=== PATIENT | male | born 1995 | race Caucasian/White ===

== ENCOUNTER 2016-11-26 13:47 | Emergency (ER) | payer BC ==
[2016-11-26] MEDS ORDERED: oxyCODONE/Acetamin 5/325 MG* TAB PO ONE (15:28)
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
--- NOTE | 2016-11-26 16:07 | RAD ---
HISTORY: Left foot Pain and swelling, trauma COMPARISONS: None VIEWS: 3, Frontal, lateral, and oblique views of the left foot FINDINGS: BONE DENSITY: Normal. BONES: There is a linear lucency along the plantar surface of the base of the proximal phalanx of the first digit at the MTP joint suggestive of a nondisplaced fracture given the history of trauma JOINTS: There is no arthropathy. ALIGNMENT: There is no dislocation. SOFT TISSUES: Unremarkable. OTHER FINDINGS: None. IMPRESSION: NONDISPLACED FRACTURE OF THE BASE OF THE PROXIMAL PHALANX OF THE FIRST DIGIT AT THE MTP JOINT
[2016-11-26 17:07] VITALS: BP 109/48
== END 2016-11-26 17:05 | disposition home or self-care (01) ==
LOC: ED 13:47
DX: S92.415A Nondisplaced fracture of proximal phalanx of left great toe, initial encounter for closed fracture (principal); W22.8XXA Striking against or struck by other objects, initial encounter; Y93.9 Activity, unspecified; Y92.9 Unspecified place or not applicable; Y99.9 Unspecified external cause status
CPT/HCPCS: 99282; A9270-GY

== ENCOUNTER → 2017-04-08 13:49 | Emergency (ER) | payer BC ==
[~2017-04-08 13:49] MED LIST: NS 0.9% 1000 ML* 1,000 ML IV ONE
--- NOTE | 2017-04-08 14:34 | ED ---
Abdominal Pain/Male - HPI Summary HPI Summary: 22M presents with lower abdominal cramps for a day. He states it is probably due to constipation. He denies any nausea, vomiting or diarrhea. He denies any fevers. He has not had a bowel movement in 5 days. He has not taken anything for his constipation. He denies any dysuria, hematuria, flank pain, urgency, or frequency. He has never had this pain before. He denies any previous abdominal surgeries. - History of Current Complaint Chief Complaint: EDAbdPain Stated Complaint: ABD PAIN/CRAMMPING Time Seen by Provider: 04/08/17 14:05 Pain Intensity: 5 - Allergies/Home Medications Allergies/Adverse Reactions: Allergies Allergy/AdvReac Type Severity Reaction Status Date / Time No Known Allergies Allergy Unverified 11/26/16 14:04 PMH/Surg Hx/FS Hx/Imm Hx Endocrine/Hematology History: Denies: Hx Diabetes Cardiovascular History: Denies: Hx Hypertension Infectious Disease History: Denies: Traveled Outside the [place] in Last 30 Days - Family History Known Family History: Negative: Cardiac Disease - Social History Alcohol Use: None Substance Use Type: Reports: None Smoking Status (MU): Light Every Day Tobacco Smoker Review of Systems Negative: Fever Negative: Chest Pain Negative: Shortness Of Breath Positive: Abdominal Pain, Other - constipation. Negative: Vomiting, Diarrhea, Nausea All Other Systems Reviewed And Are Negative: Yes Physical Exam Triage Information Reviewed: Yes Vital Signs On Initial Exam: Initial Vitals Temp Pulse Resp BP Pulse Ox 97.8 F 74 17 110/63 98 04/08/17 13:51 04/08/17 13:51 04/08/17 13:51 04/08/17 13:51 04/08/17 13:51 Vital Signs Reviewed: Yes Appearance: Positive: Well-Appearing Skin: Positive: Warm, Dry Head/Face: Positive: Normal Head/Face Inspection Eyes: Positive: Normal, Conjunctiva Clear Respiratory/Lung Sounds: Positive: Clear to Auscultation, Breath Sounds Present Cardiovascular: Positive: Normal, RRR Abdomen Description: Positive: Soft, Other: - mild tenderness across lower abdomen Bowel Sounds: Positive: Present Diagnostics - Vital Signs Vital Signs Temp Pulse Resp BP Pulse Ox 04/08/17 13:51 97.8 F 74 17 110/63 98 - Laboratory Lab Statement: Any lab studies that have been ordered have been reviewed, and results considered in the medical decision making process. Re-Evaluation - Re-Evaluation First Eval Re-Evaluation Time: 14:33 Change: Improved Comment: pain gone after BM here in ED without any medication, nontender abdominal exam Abdominal Pain Fem Course/Dx - Course Course Of Treatment: 22M presents with lower abdominal cramps for a day. He states it is probably due to constipation. He denies any nausea, vomiting or diarrhea or fevers. on exam diffusely tender in lower quadrants. after BM in ED pain relieved and abdomen nontender on exam. was going to order lab work but patient wants to go and I arrive pain was likely due to constipation. told to take OTC laxative such as miralax. patient understands and agrees with plan - Diagnoses Differential Diagnosis/HQI/PQRI: Appendicitis, Bowel Obstruction, Constipation, Urinary Tract Infection Provider Diagnoses: Constipation Discharge - Discharge Plan Condition: Good Disposition: HOME Patient Education Materials: Constipation (ED) Forms: *Work Release Referrals: [facility] [place] [facility] [Outside] Additional Instructions: Can use an OTC laxative Drink plenty of fluids Establish care with primary care physician Return to ED if develop any new or worsening symptoms
[2017-04-08 14:35] VITALS: BP 112/66
== END | disposition home or self-care (01) ==
LOC: ED 13:49
DX: K59.00 Constipation, unspecified (principal); R10.9 Unspecified abdominal pain; F17.210 Nicotine dependence, cigarettes, uncomplicated
CPT/HCPCS: 99282